=== PATIENT | male | born 1985 | race Caucasian/White ===

== ENCOUNTER → 2022-10-29 14:23 | Outpatient (BNVA) | payer SELFPAY | PROVIDERS: Visit Provider Physician Assistant Medical | DX: Z02.79 Encounter for issue of other medical certificate (principal) ==

== ENCOUNTER 2024-12-13 10:47 | Outpatient (AMB) | payer OTHER, SELFPAY ==
--- NOTE | 2024-12-13 10:56 | MHC.PC.OV ---
Vital Signs 12/13/24 11:02 12/13/24 11:10 12/13/24 11:36 Height 5 ft 8 in Weight 321 lb BMI 48.8 BP 199/121 H 190/116 H 190/120 H Blood Pressure Location Rt brachial Rt brachial Rt brachial Position Sitting Sitting Sitting Respiration 16 Pulse 105 H 90 Pulse Source Pulse Oximeter Auscultation Temp 98.2 F Temp Source Oral Pulse Oximetry (%) 97 Oxygen Delivery Method Room Air Intake Visit Reasons: Requesting PE/ Establish care Intake Note: patient here for new patient visit Credit Risk Manager Required: No Allergies No Known Allergies Allergy (Verified 12/13/24 11:24) Medication List - Last Reconciled 12/13/24 by Malena Hairston, [employer]KATLYN tirzepatide (weight loss) (Zepbound) 5 mg subcut QWEEK Tobacco use date assessed: 12/13/24 Dental Screening Dental Screen Date: 12/13/24 Did you have a dental visit in the last 12 months?: Yes Did you have a dental problem in the last 6 months where you did not have access to dental care?: No Was dental information given to patient?: Patient has dentist HPI HPI Comments History of Present Illness Details 39-year-old male with morbid obesity, hypertension, hx of provoked DVT RUE (high school), LVH s/p umb hernia repair, Family hx: Dad with MD Social: , works in construction Health Maintenance: PSA ordered today Tdap admin today Flu declined Specialists: None Here today to establish care the only previous medical records that I have for him are from July of 2024 when he was seen of the emergency room for chest pain. He was diagnosed with hypertension at that time an EKG showed sinus tachycardia otherwise was within normal limits discharged home w/o meds. Monitors BP at home. Always high. Today denies cardiac complaints; Does not have any swelling in legs. No sx of sleep apnea; has never had sleep study. Chronic nasal congestion. Using flonase. Using sudafed routinely like 3 x week. Reports tried allergy meds w/o help. RLS at times Rash on bilat knees, prsent for years. Non painful or itchy. has not seen Derm Exam Awake alert NAD PERRLA EOMI RRR LS clear but dim throughout No edema BLE See below for rash Neuro - no deficits Plan EKG today shows LVH; proceed w/ Echo. Tdap today Labs today Declined flu Refer to Derm for rash on knees, [facility] referral, find out if insurance is accepted in [place]; if so, send me message and will refer to ENT. Long wait in [place] for services. Want him off sudafed SAÚL. Cont flonase. RTO 2 weeks BP recheck,sooner PRN 911 edu provided. Total time spent caring for the patient today was 48 minutes. This includes time spent before the visit reviewing the chart, time spent during the visit, and time spent after the visit on documentation, reviewing laboratory results, diagnostic imaging, medications, performing a medically necessary evaluation, counseling on diagnoses, care coordination, ordering appropriate tests, ordering appropriate medications, review of tests performed by other providers, reporting test results with the patient, communication with other healthcare providers. [facility] Medical History (Updated 12/13/24 @ 12:12 by Malena Hairston, [facility]) Anxiety H/O blood clots High blood pressure Surgical History (Updated 12/13/24 @ 11:08 by Hedy Ann MA) History of hernia repair Family History (Updated 12/13/24 @ 11:08 by Hedy Ann MA) Father Alcohol abuse High blood pressure Cardiovascular disease Mother Anal cancer Social History Housing: House Patient Tobacco Use Status: Never used Tobacco e-Cigarette/Vaping Use: Never Used Second Hand Smoke Exposure: No service: No Current occupational status: employed Current occupation: labor work Current occupational exposures/hazards: No Cognitive needs: No Hearing needs: No Vision needs: No Questionnaire PHQ-9 Over the last 2 weeks, how often have you been bothered by any of the following problems? 1. Little interest or pleasure in doing things: not at all 2. Feeling down, depressed, or hopeless: not at all 3. Trouble falling or staying asleep, or sleeping too much: not at all 4. Feeling tired or having little energy: not at all 5. Poor appetite or overeating: not at all 6. Feeling bad about yourself - or that you are a failure or have let yourself or your family down: not at all 7. Trouble concentrating on things, such as reading the newspaper or watching television: not at all 8. Moving or speaking so slowly that other people could have noticed. Or the opposite - being so fidgety or restless that you have been moving around a lot more than usual: not at all 9. Thoughts that you would be better off or of hurting yourself in some way: not at all Total score: 0 Depression Screening Interpretation: Negative Depression Screening Done: Yes 38677 - PHQ-9 Billing: Yes Source: Developed by Drs. Lawrence Davila, Pao Power, Nilton Grimaldo and colleagues, with an educational elva from [employer]. Thrive Questionnaire Date Thrive assessed: 12/13/24 I am a: Patient What is your living situation today?: I have a steady place to live Within the past 12 months, did the food you bought not last and you didn't have the money to get more?: Never true Within the past 12 months, did you worry whether your food would run out before you got money to buy more?: Never true Do you have trouble paying for medicines?: No Do you have trouble getting transportation to medical appointments?: No Do you have trouble paying your heating and electricity bill?: No Do you have trouble taking care of your child, family member or friend?: No Do you have trouble with day-to-day activities such as bathing, preparing meals, shopping, managing finances, etc.?: No Are you currently unemployed and looking for a job?: No Are you interested in more education?: No Please select the resources that you would like help with: None Currently or been in a relationship where the following occur: No concerns reported THRIVE Score: 0 AUDIT C Alcohol Use Questionnaire (AUDIT-C) 1. How often do you have a drink containing alcohol?: Monthly or less 2. How many drinks containing alcohol do you have on a typical day when you are drinking?: 5 or 6 3. How often do you have six or more drinks on one occasion?: Never Total Score: 3 Score Reviewed/Action Taken: Yes FREDI-7 AMB Questionnaire FREDI-7 Date FREDI - 7 assessed: 12/13/24 Feeling nervous, anxious, or on edge: 1 = Several days Not being able to stop or control worryin = Not at all Worrying too much about different things: 1 = Several days Trouble relaxin = Several days Being so restless that it is hard to sit still: 1 = Several days Becoming easily annoyed or irritable: 1 = Several days Feeling afraid as if something awful might happen: 0 = Not at all Total FREDI-7 score (0-4 normal; 5-9 mild; 10-14 moderate; 15-21 severe): 5 Source: Developed by Drs. Lawrence Davila, Pao Power, Nilton Grimaldo and colleagues, with an educational elva from [employer]. FREDI-7 Assessment Billing FREDI-7 Assessment Tool: FREDI-7 Assessment 26337 Physical exam (Primary Care) Vital Signs: Last Vital Signs Temp 98.2 F 12/13/24 11:02 Pulse 90 12/13/24 11:36 Resp 16 12/13/24 11:02 BP 190/120 H 12/13/24 11:36 Pulse Ox 97 12/13/24 11:02 Oxygen Delivery Method Room Air 12/13/24 11:02 BMI result Body Mass Index 48.8 Tobacco/Smoking Status: Tobacco use Status Tobacco use date assessed 12/13/24 12/13/24 11:02 Patient Tobacco Use Status Never used Tobacco 12/13/24 11:02 e-Cigarette/Vaping Use Never Used 12/13/24 11:02 PHQ-9: PHQ-9 Score PHQ-9: Total score 0 12/13/24 11:59 Depression Screening Interpretation: Negative Thrive Assessment: Date of Thrive Assessment Date Thrive assessed 12/13/24 12/13/24 11:02 Currently or been in a relationship where the following occur: No concerns reported Office Procedures EKG 51432-[id number], Complete Immunizations Boostrix Tdap 2.5 Lf unit-8 mcg-5 Lf/0.5 mL intramuscular syringe Performing Provider: SIRISHA Gutierrez Performing Location: [facility] Administered by: Darryl Ko RN on 12/13/24 12:00 Dose Route Admin Location Dispensed Lot Number Expiration Date NDC Ribbon Tier 0.5 mL IM Right Deltoid 0.5 mL [id number] 09/22/26 [id number] [place] VIS Given Date VIS Provided VIS Publication Date 12/13/24 Single Vaccine 21 Eligibility Eligibility Date Funding Source Not [facility] Eligible 12/13/24 Private Coding Level of Care Code New Pt Level 4 (14352) Complex EM visit Add On G2211 Diagnoses Encounter to establish care Z76.89 Primary hypertension I10 Hypertension type: primary hypertension Morbid obesity with BMI of 45.0-49.9, adult E66.01; Z68.42 Atypical rash R21 RLS (restless legs syndrome) G25.81 Family history of MD (myocardial infarction) Z82.49 Influenza vaccination declined Z28.21 Need for Tdap vaccination Z23 Chronic nasal congestion R09.81 LVH (left ventricular hypertrophy) I51.7 CPT Codes EKG - CPT: 84380-[id number], Complete ([id number]) Additional Codes FREDI-7 Assessment Billing - FREDI-7 Assessment Tool: FREDI-7 Assessment 39062 ([id number]) PHQ-9 - 75662 - PHQ-9 Billing: Yes ([id number]) Assessment & Plan Assessment & Plan (1) Encounter to establish care: Code(s): Z76.89 - Persons encountering health services in other specified circumstances Category: Medical (2) High blood pressure: Code(s): I10 - Essential (primary) hypertension Category: Medical Qualifiers: Hypertension type: primary hypertension Qualified Code(s): I10 - Essential (primary) hypertension (3) Morbid obesity with BMI of 45.0-49.9, adult: Code(s): E66.01 - Morbid (severe) obesity due to excess calories; Z68.42 - Body mass index [BMI] 45.0-49.9, adult Category: Medical (4) Atypical rash: Comment: bilat knee refer to derm Code(s): R21 - Rash and other nonspecific skin eruption Category: Medical (5) RLS (restless legs syndrome): Code(s): G25.81 - Restless legs syndrome Category: Medical (6) Family history of MD (myocardial infarction): Comment: Dad age 65 Code(s): Z82.49 - Family history of ischemic heart disease and other diseases of the circulatory system Category: Medical (7) Influenza vaccination declined: Code(s): Z28.21 - Immunization not carried out because of patient refusal Category: Medical (8) Need for Tdap vaccination: Code(s): Z23 - Encounter for immunization Category: Medical (9) Chronic nasal congestion: Code(s): R09.81 - Nasal congestion Category: Medical (10) LVH (left ventricular hypertrophy): Code(s): I51.7 - Cardiomegaly Category: Medical Plan . Orders: Orders Complete Blood Count no Diff Today E66.01 - Morbid (severe) obesity due to excess calories, G25.81 - Restless legs syndrome, I10 - Essential (primary) hypertension, Z68.42 - Body mass index [BMI] 45.0-49.9, adult, Z82.49 - Family history of ischemic heart disease and other diseases of the circulatory system Comprehensive Met. Panel Today E66.01 - Morbid (severe) obesity due to excess calories, G25.81 - Restless legs syndrome, I10 - Essential (primary) hypertension, Z68.42 - Body mass index [BMI] 45.0-49.9, adult, Z82.49 - Family history of ischemic heart disease and other diseases of the circulatory system Hemoglobin A1c Today E66.01 - Morbid (severe) obesity due to excess calories, G25.81 - Restless legs syndrome, I10 - Essential (primary) hypertension, Z68.42 - Body mass index [BMI] 45.0-49.9, adult, Z82.49 - Family history of ischemic heart disease and other diseases of the circulatory system Lipid Panel Today E66.01 - Morbid (severe) obesity due to excess calories, G25.81 - Restless legs syndrome, I10 - Essential (primary) hypertension, Z68.42 - Body mass index [BMI] 45.0-49.9, adult, Z82.49 - Family history of ischemic heart disease and other diseases of the circulatory system PSA, Ultra Sensitive Today E66.01 - Morbid (severe) obesity due to excess calories, G25.81 - Restless legs syndrome, I10 - Essential (primary) hypertension, Z68.42 - Body mass index [BMI] 45.0-49.9, adult, Z82.49 - Family history of ischemic heart disease and other diseases of the circulatory system RT home sleep study Today R06.83 - Snoring CA echo transthoracic complete Today I10 - Essential (primary) hypertension, I51.7 - Cardiomegaly IRON PROFILE Today E66.01 - Morbid (severe) obesity due to excess calories, G25.81 - Restless legs syndrome, I10 - Essential (primary) hypertension, Z68.42 - Body mass index [BMI] 45.0-49.9, adult, Z82.49 - Family history of ischemic heart disease and other diseases of the circulatory system Microalbumin, Random (w Creat) Today E66.01 - Morbid (severe) obesity due to excess calories, G25.81 - Restless legs syndrome, I10 - Essential (primary) hypertension, Z68.42 - Body mass index [BMI] 45.0-49.9, adult, Z82.49 - Family history of ischemic heart disease and other diseases of the circulatory system TSH reflex Free T4 Today E66.01 - Morbid (severe) obesity due to excess calories, G25.81 - Restless legs syndrome, I10 - Essential (primary) hypertension, Z68.42 - Body mass index [BMI] 45.0-49.9, adult, Z82.49 - Family history of ischemic heart disease and other diseases of the circulatory system Vitamin B12 and Folate Today E66.01 - Morbid (severe) obesity due to excess calories, G25.81 - Restless legs syndrome, I10 - Essential (primary) hypertension, Z68.42 - Body mass index [BMI] 45.0-49.9, adult, Z82.49 - Family history of ischemic heart disease and other diseases of the circulatory system Vitamin D 25-OH Total Today E66.01 - Morbid (severe) obesity due to excess calories, G25.81 - Restless legs syndrome, I10 - Essential (primary) hypertension, Z68.42 - Body mass index [BMI] 45.0-49.9, adult, Z82.49 - Family history of ischemic heart disease and other diseases of the circulatory system Ferritin Today E66.01 - Morbid (severe) obesity due to excess calories, G25.81 - Restless legs syndrome, I10 - Essential (primary) hypertension, Z68.42 - Body mass index [BMI] 45.0-49.9, adult, Z82.49 - Family history of ischemic heart disease and other diseases of the circulatory system AMB EKG-In Office Today I10 - Essential (primary) hypertension, Z13.6 - Encounter for screening for cardiovascular disorders TDaP Immunization Today Z23 - Encounter for immunization Referrals Dermatology Referral R21 - Rash and other nonspecific skin eruption Patient Instructions: Walk-In Care (Urgent Care): We Make it Easy Walk-in for urgent medical issues such as: ? Seasonal Allergies ? Insect Bites ? Cough ? Diarrhea ? Acute Asthma Attacks ? Back, Knee or Joint Pain ? Ear Infection ? Fever without a Rash ? Headaches ? Nausea ? [place] [facility], Rash or Skin Irritation ? Sore Throat ? Sports Physicals ? Vomiting Most insurances are accepted. Patients do not need to be part of the [facility] to seek care at the walk-in clinic. Locations [address] [facility] [place] [address] ? [phone] [facility] Walk-In Care in [place] provides services to ages 18 and over. Open Wednesday-Wednesday: 8 a.m. to 5 p.m. and Wednesday: 9 a.m. to 3 p.m.* *Hours may vary due to staffing availability. To confirm Walk-In Care hours in [place], please call [phone]. [address] [place] [address] ? [phone] [facility] Walk-In Care in [place] provides services to ages 12 and over. Open Wednesday-Wednesday: 8 a.m. to 5 p.m. Hours may vary due to staffing availability. To confirm Walk-In Care hours in [place], please call [phone]. LABORATORY SERVICES: [facility] ? Primary Location [address] [place] [address] Wednesday through Wednesday 6:00 AM ? 5:00 PM Wednesday 7:00 AM ? 11:00 AM* [phone] The [facility] is centrally located near the front entrance of the [facility] for easy outpatient access. Convenient parking is provided for outpatients. *Hours may vary due to staffing availability. To confirm Laboratory hours for any location, please call [phone]. Offsite Location For your convenience, we offer offsite laboratory draw stations at the following locations: [address] [place] [address] ? [facility] [address], [address] Wednesday through Wednesday 7:30 AM ? 1:00 PM* [phone] *Hours may vary due to staffing availability. To confirm Laboratory hours for any location, please call [phone]. [place] ? [address] Wednesday through Wednesday 6:00 AM ? 3:30 PM* Wednesday 6:30 AM ? 3 PM* [phone] *Hours may vary due to staffing availability. To confirm Laboratory hours for any location, please call [phone]. [address] [facility] Wednesday through Wednesday 7:30 AM ? 4:00 PM* [phone] *Hours may vary due to staffing availability. To confirm Laboratory hours for any location, please call [phone]. [address] [facility] Wednesday through 9:00 AM ? 4:00 PM* *Hours may vary due to staffing availability. To confirm Laboratory hours for any location, please call [phone]. Appointments are not necessary. Walk-ins are welcome. Like all the departments throughout the [facility], our Lab undergoes frequent reviews to ensure the quality and accuracy of test results, and our staff takes special pride in its status as a nationally accredited facility. Patient Portal: ONE PATIENT. ONE RECORD. BETTER CARE. [facility] has a fully integrated, cutting-edge mobile electronic health information system that has revolutionized the way we care for our patients and manage our organization. This system improves communication and coordination enabling us to provide safe, higher-quality care, and an overall positive experience for staff and patients. Our first priority, as always, is to deliver the highest quality care possible. The system is running in the background supporting that priority. This portal is for all [facility] and [facility] services and practices. If you are experiencing any technical difficulties with enrolling or logging into the Patient Portal please complete the [facility] Patient Portal Technical Support Form. [facility] and [facility] now offers a new secure on-line interactive tool for patients to review their health information ? ?Patient Portal. This interactive web portal will enable patients and their families to take an active role in their care by providing easy, secure access to their health information via the internet. The Patient Portal provides patients with instant access to their health information, including laboratory results, medications, allergies, demographic information, visit history, and more. In addition to managing their own care, parents and health care proxies with authorized consent will appreciate the ability to access the records of those individuals for whom they provide care. Please note: if you wish to gain access (Proxy) to another patient?s portal, you will be required to come to the Medical Records Department in person at [facility]. Both the patient giving proxy access and the proxy will need to provide photo identification and complete the appropriate authorization. The Patient Portal also allows track their appointments online. The [facility] Patient Portal also saves patients time by allowing them to submit updates to their demographic and contact information prior to their visits. Portal email notifications will also alert patients to any new activity on their portal, such as test results and new appointments. In order to initially enroll in the [facility] Patient Portal, you will need to enter some required information including the following: your [facility] Medical Record number your personal home email address name date of Please note: In order to enroll in the [facility] Patient Portal, we need to have your email address on file in your electronic medical record. ?The email address needs to be specific for one person (yourself) in order for your Portal enrollment to be successful. ?You can update your email address in person with our Registration staff when you are registering for a hospital visit. ?Otherwise, you will need to come to the Health Information Management (Medical Records) Department at [facility]. ?We are open from Wednesday ? Wednesday from 7:30 a.m. ? 4:30 p.m. ?You will be required to present a photo id. Once you have successfully enrolled in the Patient Portal, you will receive a one-time user id and password for the Portal, sent to your email address. ?This will allow you to log into the Patient Portal within 99 hrs and reset your own logon id and password, and define personal security questions. ?Once your permanent login and password have been set, you can log into the [facility] Patient Portal at any time via the blue button above or from the Portal Logon button on any page of the [facility] website. [facility] and [facility] encourage all of our patients to enroll in Patient Portal as it presents a valuable opportunity for patients and their families to actively participate in their care and stay healthy Welcome to [facility]. ?We look forward to working with you.
[2024-12-13 11:02] VITALS: BP 199/121; PULSE 105; RESP 16; TEMP 36.8; O2SAT 97; BMI 48.8
[2024-12-13 11:10] VITALS: BP 190/116
[2024-12-13 11:36] VITALS: BP 190/120; PULSE 90
== END 2024-12-13 12:13 | disposition home or self-care (01) ==
LOC: HO.HMCFM 10:47
PROVIDERS: PCP Nurse Practitioner Family; Visit Provider Nurse Practitioner Family
DX: Z76.89 Persons encountering health services in other specified circumstances (principal); I10 Essential (primary) hypertension; E66.01 Morbid (severe) obesity due to excess calories; Z68.42 Body mass index [BMI] 45.0-49.9, adult; R21 Rash and other nonspecific skin eruption; G25.81 Restless legs syndrome; Z82.49 Family history of ischemic heart disease and other diseases of the circulatory system; Z28.21 Immunization not carried out because of patient refusal; Z23 Encounter for immunization; R09.81 Nasal congestion; I51.7 Cardiomegaly

== ENCOUNTER 2024-12-13 12:04 | Outpatient (REF) | payer OTHER, SELFPAY ==
[2024-12-13 14:22] LABS: Hemoglobin 16.6 g/dl (14.0-18.0); Mean Corpuscular HGB Conc 35.3 g/dl (31.0-36.0); Mean Corpuscular Hemoglobin 30.8 pg (27.0-33.0); Mean Corpuscular Volume 87.2 fL (80.0-98.0); Mean Platelet Volume 10.9 fL (9.4-12.4); Platelet Count 237 X10*3/uL (160-400); Red Blood Count 5.39 X10*6/uL (4.60-5.80); Red Cell Distribution Width 12.6 % (11.0-16.0); White Blood Count 6.2 X10*3/uL (4.8-10.8)
[2024-12-13 14:38] LABS: Estimated Average Glucose 88 mg/dL; Hemoglobin A1C 119.4609 umol/L; Hemoglobin A1c % 4.7 % (<6.0); Total Hemoglobin (HGBA1C) 4366.3197 umol/L
[2024-12-13 14:49] LABS: Alanine Aminotransferase 47 U/L (0-40); Albumin Level 4.5 g/dL (3.5-5.0); Alkaline Phosphatase 89 U/L (39-117); Anion Gap 9 (12-20); Aspartate Amino Transferase 44 U/L (5-37); Bilirubin Total 0.8 mg/dL (0.0-1.0); Blood Urea Nitrogen 19 mg/dL (9-16); Calcium 9.5 mg/dL (8.4-10.2); Carbon Dioxide 27 mmol/L (22-29); Chloride 106 mmol/L (96-108); Cholesterol 153 mg/dL (<200); Estimated Glomerular Filt Rate > 60; Glucose Random 80 mg/dL (60-115); HDL Cholesterol 35 mg/dL (>40); Iron 112 mcg/dL (45-160); LDL Cholesterol Calculated 105 mg/dL (<100); Percent Iron Saturation 38 % (15-50); Potassium 3.6 mmol/L (3.3-5.1); Sodium 138 mmol/L (135-145); Total Iron Binding Capacity 298 mcg/dL (228-428); Total Protein 7.6 g/dL (6.5-8.0); Triglycerides 69 mg/dL (<150); Unsaturated Iron Binding 186 ug/dL
[2024-12-13 14:54] LABS: Microalbum/Creatinine Ratio Ur 40.4 ug/mg cr (<30)
[2024-12-13 15:04] LABS: Folate 7.5 ng/mL (> or = 4.0); Vitamin B12 798 pg/mL (200-900)
[2024-12-13 15:06] LABS: Ferritin 178 ng/mL (20-250); Vitamin D 25-OH Total 61.7 ng/mL (>30)
[2024-12-17 16:09] LABS: PSA, Ultra Sensitive 1.48 ng/mL
== END 2024-12-13 12:05 | disposition home or self-care (01) ==
LOC: HO.WFDLDS 12:04
PROVIDERS: Visit Provider Nurse Practitioner Family
DX: Z76.89 Persons encountering health services in other specified circumstances (principal); Z23 Encounter for immunization; I10 Essential (primary) hypertension; E66.01 Morbid (severe) obesity due to excess calories; Z68.42 Body mass index [BMI] 45.0-49.9, adult; R21 Rash and other nonspecific skin eruption; G25.81 Restless legs syndrome; Z82.49 Family history of ischemic heart disease and other diseases of the circulatory system; Z28.21 Immunization not carried out because of patient refusal; Z12.5 Encounter for screening for malignant neoplasm of prostate; Z13.1 Encounter for screening for diabetes mellitus
CPT/HCPCS: 36415; 80053; 80061; 82043; 82306; 82570; 82607; 82728; 82746; 83036; 83540; 84153; 84443; 85027; 90471; 90715; 93005; 96127

== ENCOUNTER 2024-12-27 08:16 | Outpatient (AMB) | payer OTHER, SELFPAY ==
--- NOTE | 2024-12-27 08:22 | MHC.PC.OV ---
Vital Signs 12/27/24 08:25 Height 5 ft 8 in Weight 305 lb BMI 46.4 BP 152/90 H Blood Pressure Location Rt brachial Position Sitting Respiration 14 Pulse 90 Pulse Source Pulse Oximeter Temp 97.6 F Temp Source Oral Pulse Oximetry (%) 97 Oxygen Delivery Method Room Air Intake Visit Reasons: 2 weeks 30 min fu labs and HTN Intake Note: Follow up on labs and htn Field Support Specialist Required: No Allergies No Known Allergies Allergy (Verified 12/27/24 08:48) Medication List - Last Reconciled 12/27/24 by Malena Hairston, RANGE ECOLOGIST- lisinopril 20 mg PO DAILY tirzepatide (weight loss) (Zepbound) 5 mg subcut QWEEK Tobacco use date assessed: 12/27/24 Dental Screening Dental Screen Date: 12/27/24 Did you have a dental visit in the last 12 months?: Yes Did you have a dental problem in the last 6 months where you did not have access to dental care?: No Was dental information given to patient?: Patient has dentist HPI HPI Comments History of Present Illness Details 39-year-old male with morbid obesity, hypertension, hx of provoked DVT RUE (high school), LVH, elevated LFT, HLD s/p umb hernia repair, Family hx: Dad with [place] Social: , works in construction Health Maintenance: PSA ordered today Tdap admin today Flu declined Specialists: None Here today for close interim fu HTN after starting lisinopril 20mg QD BP log from home reviewed: SBP 150-170, DBP 93-111 Tolerating Lisinopril Feeling much better Limiting use of Sudafed No chest pain, sob or swelling. Derm - referral in place. Using topical steroids + effect. Appt pending. Insurance accepted in [place] for E[place]. Reviewed labs with him, low hdl LDL > 100, mild elevated LFTS mild microalbumin normal bun, cr Exam Awake alert NAD PERRLA EOMI RRR LS clear but dim throughout No edema BLE See below for rash Neuro - no deficits Plan Increase lisinipril to 40mg QD Monitor BP at home, bring log with you to next visit Monitor Lipids ,LFTS, microalbu with labs in 3 months Echo pending and sleep study ENT referral to CT placed today RTO 4-6 weeks bp recheck, sleep study and echo results Sooner PRN Total time spent caring for the patient today was 30 minutes. This includes time spent before the visit reviewing the chart, time spent during the visit, and time spent after the visit on documentation, reviewing laboratory results, diagnostic imaging, medications, performing a medically necessary evaluation, counseling on diagnoses, care coordination, ordering appropriate tests, ordering appropriate medications, review of tests performed by other providers, reporting test results with the patient, communication with other healthcare providers. [facility] Medical History (Updated 12/13/24 @ 17:12 by Malena Hairston [facility]) Anxiety H/O blood clots High blood pressure Surgical History (Updated 12/13/24 @ 11:08 by Hedy Ann MA) History of hernia repair Family History (Updated 12/13/24 @ 11:08 by Hedy Ann MA) Father Alcohol abuse High blood pressure Cardiovascular disease Mother Anal cancer Social History Housing: House Patient Tobacco Use Status: Never used Tobacco e-Cigarette/Vaping Use: Never Used Second Hand Smoke Exposure: No service: No Current occupational status: employed Current occupation: labor work Current occupational exposures/hazards: No Cognitive needs: No Hearing needs: No Vision needs: No Questionnaire Thrive Questionnaire Date Thrive assessed: 12/13/24 I am a: Patient What is your living situation today?: I have a steady place to live Within the past 12 months, did the food you bought not last and you didn't have the money to get more?: Never true Within the past 12 months, did you worry whether your food would run out before you got money to buy more?: Never true Do you have trouble paying for medicines?: No Do you have trouble getting transportation to medical appointments?: No Do you have trouble paying your heating and electricity bill?: No Do you have trouble taking care of your child, family member or friend?: No Do you have trouble with day-to-day activities such as bathing, preparing meals, shopping, managing finances, etc.?: No Are you currently unemployed and looking for a job?: No Are you interested in more education?: No Please select the resources that you would like help with: None Currently or been in a relationship where the following occur: No concerns reported THRIVE Score: 0 FREDI-7 AMB Questionnaire FREDI-7 Date FREDI - 7 assessed: 12/13/24 Source: Developed by Drs. Lawrence L. LolaPao aranda, Nilton Grimaldo and colleagues, with an educational elva from [employer]. Physical exam (Primary Care) Vital Signs: Last Vital Signs Temp 97.6 F 12/27/24 08:25 Pulse 90 12/27/24 08:25 Resp 14 12/27/24 08:25 BP 152/90 H 12/27/24 08:25 Pulse Ox 97 12/27/24 08:25 Oxygen Delivery Method Room Air 12/27/24 08:25 BMI result Body Mass Index 46.4 Tobacco/Smoking Status: Tobacco use Status Tobacco use date assessed 12/27/24 12/27/24 08:27 Patient Tobacco Use Status Never used Tobacco 12/27/24 08:23 e-Cigarette/Vaping Use Never Used 12/27/24 08:23 Thrive Assessment: Date of Thrive Assessment Date Thrive assessed 12/13/24 12/27/24 08:23 Currently or been in a relationship where the following occur: No concerns reported Coding Level of Care Code Est Pt Level 4 (14139) Complex EM visit Add On G2211 Diagnoses Primary hypertension I10 Hypertension type: primary hypertension Low HDL (under 40) E78.6 Microalbuminuria R80.9 Atypical rash R21 Chronic nasal congestion R09.81 LVH (left ventricular hypertrophy) I51.7 Assessment & Plan Assessment & Plan (1) High blood pressure: Code(s): I10 - Essential (primary) hypertension Category: Medical Qualifiers: Hypertension type: primary hypertension Qualified Code(s): I10 - Essential (primary) hypertension (2) Low HDL (under 40): Code(s): E78.6 - Lipoprotein deficiency Category: Medical (3) Microalbuminuria: Code(s): R80.9 - Proteinuria, unspecified Category: Medical (4) Atypical rash: Comment: bilat knee refer to derm Code(s): R21 - Rash and other nonspecific skin eruption Category: Medical (5) Chronic nasal congestion: Code(s): R09.81 - Nasal congestion Category: Medical (6) LVH (left ventricular hypertrophy): Code(s): I51.7 - Cardiomegaly Category: Medical Plan . Orders: Orders Lipid Panel Today E78.6 - Lipoprotein deficiency, I10 - Essential (primary) hypertension, R80.9 - Proteinuria, unspecified Microalbumin, Random (w Creat) Today E78.6 - Lipoprotein deficiency, I10 - Essential (primary) hypertension, R80.9 - Proteinuria, unspecified Comprehensive Met. Panel Today E78.6 - Lipoprotein deficiency, I10 - Essential (primary) hypertension, R80.9 - Proteinuria, unspecified Referrals Ear/Nose/Throat Referral R09.81 - Nasal congestion Medications: Changed From lisinopril 20 mg PO DAILY 90 tabs 0RF To lisinopril 40 mg (2 x 20 mg) PO DAILY 90 tabs 0RF
[2024-12-27 08:25] VITALS: BP 152/90; PULSE 90; RESP 14; TEMP 36.4; O2SAT 97; BMI 46.4
== END 2024-12-27 09:01 | disposition home or self-care (01) ==
LOC: HO.HMCFM 08:17
PROVIDERS: PCP Nurse Practitioner Family; Visit Provider Nurse Practitioner Family
DX: I10 Essential (primary) hypertension (principal); E78.6 Lipoprotein deficiency; R80.9 Proteinuria, unspecified; R21 Rash and other nonspecific skin eruption; R09.81 Nasal congestion; I51.7 Cardiomegaly

== ENCOUNTER → 2024-12-27 08:16 | Outpatient (BNVA) | payer OTHER, SELFPAY | PROVIDERS: PCP Nurse Practitioner Family; Visit Provider Nurse Practitioner Family ==

== ENCOUNTER → 2025-01-23 14:29 | Outpatient (REF) | payer OTHER, SELFPAY ==
--- NOTE | 2025-01-23 14:32 | CA_ITS ---
Transthoracic Echocardiogram Patient (Last, First, Middle): Brennen Tate M Gender: Male Date of : 1985 Age: 40 Procedure Date: 01/23/2025 Procedure Type: Transthoracic Echocardiogram Location: OP Height: 172. cm Weight: 127.01 kg BSA: 2.35 m2 Heart Rate: 91 bpm BP: 140 / 90 mmHg Jewel Hole Driller: BROOK Referring MD: Malena Hairston [facility]- Event Organizer: Trey Negrete MD Symptoms: I51.7 - Cardiomegaly Study Quality: Technically Difficult ECG Rhythm: Sinus Conclusions: - 1. Technically limited study despite use of contrast agents 2. Normal LV ejection fraction 55-60% with mild LVH with impaired relaxation filling pattern 3. Cardiac valvular Dopplers without any significant abnormalities 4. Mildly dilated ascending aorta Findings Procedure Information Contrast agent, definity, is being given per protocol without apparent complications. Left Ventricle Normal left ventricular size and systolic function. There is mildly increased left ventricular wall thickness. The visually estimated ejection fraction is between 55-60%. Spectral Doppler is indicative of an impaired relaxation filling pattern. E/E prime ratio is between 8 and 15 consistent with indeterminate filling pressures. Right Ventricle Normal right ventricular cavity size and systolic function. Atria The left atrium is likely dilated. There is no evidence of interatrial shunt. The right atrium is normal in size. Aortic Valve The aortic valve was not well visualized. There is no aortic valve stenosis. There is no aortic valve regurgitation. Mitral Valve The mitral valve was not well visualized. There is no mitral valve regurgitation. There is no mitral valve stenosis. Pulmonic Valve The pulmonic valve was not well visualized. Tricuspid Valve The tricuspid valve was not well visualized. Tricuspid regurgitation envelope is inadequate for calculation of right ventricular systolic pressure. Great Vessels The aorta was not well visualized. The pulmonary artery was not well visualized. There is mild dilatation of the ascending aorta measuring 4.00 cm. Venous The inferior vena cava was not well visualized. Pericardium/Pleural The pericardium was not well visualized. Prior Study Comparison No prior study available for comparison. Measurements 2D Linear Measurements IVSd: 1.31 0.6-0.9/0.6-1.0 cm LVIDd: 4.09 3.9-5.3/4.2-5.9 cm LVIDd Index: 1.74 2.4-3.2/2.2-3.1 cm/m2 LVIDs: 2.27 2.0-3.6 cm LVPWd: 1.46 0.7-1.1 cm Ao Root: 3.90 2.1-3.5 cm LA Diam: 3.90 2.7-3.8/3.0-4.0 cm LAIDs Index: 1.66 1.5-2.3 cm/m2 LV Mass: 264.59 67-162/88-224 g LV Mass Index: 112.59 43-95/49-115 g/m2 LVOT Diam: 2.60 3.0+(-)1.3 cm 2D Systolic Function EF 4C: 53.90 >55% EF 2C: 59.90 >55% EF BiP: 55.40 >55% Mitral Valve MV Pk E: 0.57 MV PK A: 0.78 MV Decel Time: 251.00 E/A: 0.70 E'Lateral: 7.07 E'Medial: 6.20 E/E' Med: 9.20 E/E' Lat: 8.10 PHT: 73.00 MVA PHT: 3.01 Decel Saunders: 2.27 Aortic Valve AoV Pk Brendon: 1.24 AoV Mn Brendon: 0.91 AoV VTI: 0.19 AoV Pk Grad: 6.00 Aov Mn Grad: 4.00 NICHOLAS Cont.VTI: 5.39 LVOT LVOT Pk Brendon: 1.06 LVOT Mn Brendon: 0.74 LVOT VTI: 0.19 LVOT Pk Grad: 4.00 LVOT Mn Grad: 3.00 LVOT Diam: 2.60 LVOT Area: 5.31 Diastolic Function MV Pk E: 0.57 MV Pk A: 0.78 E/A: 0.70 E'Medial: 6.20 E/E' Med: 9.20 E' Laterial: 7.07 E/E' Lat: 8.10 Tricuspid Valve RA Press: 3.00 Great Vessels Aorta Ao Root-2D: 3.90 2.0-3.7 cm Ao Asc: 4.00 2.1-3.4 cm Ao Arch: 3.70 Pulmonary Valve PV Pk Brendon: 0.81 Peak PV Grad: 3.00 Updated in Other Vendor System with Status of Final Trey Negrete MD electronically signed on 01/23/2025 5:14:46 PM with status of Final
== END ==
LOC: HO.CARD 14:29
PROVIDERS: PCP Nurse Practitioner Family; Visit Provider Nurse Practitioner Family
DX: Q28.8 Other specified congenital malformations of circulatory system (principal); I51.7 Cardiomegaly; I10 Essential (primary) hypertension
CPT/HCPCS: 93306; Q9957

== ENCOUNTER → 2025-01-23 14:32 | Outpatient (BNV) | payer OTHER, SELFPAY | PROVIDERS: PCP Nurse Practitioner Family; Visit Provider Internal Medicine Cardiovascular Disease | DX: I51.7 Cardiomegaly (principal) | CPT/HCPCS: 93306 ==

== ENCOUNTER 2025-02-03 11:15 | Outpatient (REF) | payer OTHER, SELFPAY ==
--- NOTE | ~2025-02-03 | XR_ITS ---
CLINICAL HISTORY: M25.562 - Pain in left knee --- Additional Notes or Special Instructions: severe kn ee pain yesterday with swelling, improved today. Injured 1 year ago, no treatment Radiographs of the left knee, 4 views Comparison: None Findings: There is no fracture or dislocation. No joint space narrowing. Trace patellofemoral compartment osteophytosis. Bone mineralization is normal. No joint effusion. Soft tissue swelling. Impression: No fracture or joint effusion. This document has been electronically signed by: Laury Peck MD on 02/03/2025 12:43:15
== END 2025-02-03 11:16 | disposition home or self-care (01) ==
LOC: HO.HMGCX 11:15
PROVIDERS: PCP Nurse Practitioner Family; Visit Provider Physician Assistant Medical
DX: M25.562 Pain in left knee (principal)
CPT/HCPCS: 73564

== ENCOUNTER 2025-02-03 11:15 | Outpatient (AMB) | payer OTHER, SELFPAY ==
--- NOTE | 2025-02-03 11:16 | AM.OFFWIN_ITS ---
Intake Vital Signs 02/03/25 11:17 Height 5 ft 8 in BMI Reason not done Patient refused/unable BP 140/80 H Blood Pressure Location Lt brachial Position Sitting Pulse 78 Pulse Source Pulse Oximeter Temp 98.1 F Temp Source Oral Pulse Oximetry (%) 96 Oxygen Delivery Method Room Air Intake Visit Reasons: EP-Lt knee pain Patient Tobacco Use Status: Never used Tobacco Allergies No Known Allergies Allergy (Verified 02/08/25 10:32) Do you need a note to return to daycare/school/sports/work: No HPI EP-Lt knee pain HPI Details Patient is a 40-year-old male with reoccurrence of acute left knee pain while working recently. He reports that it develops throughout the day and is worse at night. He reports that yesterday it was swollen also, but he elevated and iced it, which relieved swelling. He does report that he was significantly overweight, and has lost weight in the last year. He reports no weakness, numbness or tingling. [facility] Medical History H/O blood clots Anxiety High blood pressure Surgical History History of hernia repair Family History Father Alcohol abuse High blood pressure Cardiovascular disease Mother Anal cancer Social History Housing: House Patient Tobacco Use Status: Never used Tobacco e-Cigarette/Vaping Use: Never Used Second Hand Smoke Exposure: No service: No Current occupational status: employed Current occupation: labor work Current occupational exposures/hazards: No Cognitive needs: No Hearing needs: No Vision needs: No Review of Systems Const All systems reviewed & are unremarkable except as noted in HPI and below Physical Exam Vital Signs: Last Vital Signs Temp 98.1 F 02/03/25 11:17 Pulse 78 02/03/25 11:17 BP 140/80 H 02/03/25 11:17 Pulse Ox 96 02/03/25 11:17 Oxygen Delivery Method Room Air 02/03/25 11:17 Extrem Other: FROM and good strength with no swelling, redness or warmth to the L knee, and he is only mildly tender with palpation to the medial and lateral joint lines. No cellulitic features to the skin. He walks with a steady and nonantalgic gait. There is no laxity with varus or valgus stress. NVI distally Assessment & Plan Assessment & Plan (1) Left knee pain: Code(s): M25.562 - Pain in left knee Plan Patient is a 40-year-old male with reoccurrence of acute left knee pain while working recently. He reports that it develops throughout the day and is worse at night. He reports that yesterday it was swollen also, but he elevated and iced it, which relieved swelling. Patient has some small bone spurs in the left knee on plain film x-ray, in the patellofemoral area. He does report that he was significantly overweight, and has lost weight in the last year, but this might be the underlying cause of early arthritis. It is also possible that he has psoriatic arthritis, as he has what looks like psoriasis on both of the knees (He is pending Dermatology evaluation for diagnosis), and his symptoms could be from a an acute flare-up. However currently there is no swelling, redness or warmth to the joint, and he is only mildly tender with palpation to the medial and lateral joint lines. He walks with a steady and nonantalgic gait, and reports no weakness, numbness or tingling. There is no laxity with varus or valgus stress, and I do not think he is highly suspicious for internal derangement. Therefore I advised that he elevate at the end of the day, and if symptoms do worsen again, he should rest ice compress and elevate until swelling resolves. He also has purchased a hinged splint on his own, and can wear that as a protective mechanism while he is working. I wrote him for naproxen for anti-inflammatory action. He has a follow up with his primary care in the next 2 weeks, and he can discuss this more at that point. He might be a candidate for physical therapy. Orders: Orders XR knee LT 4V 02/03/25 M25.562 - Pain in left knee Medications: New naproxen 500 mg PO BID PRN 28 tabs 0RF pain 14 days Coding Level of Care Code Est Pt Level 4 (53472) Diagnoses Left knee pain M25.562
[2025-02-03 11:17] VITALS: BP 140/80; PULSE 78; TEMP 36.7; O2SAT 96
== END 2025-02-03 12:35 | disposition home or self-care (01) ==
LOC: HO.HMCWIC 11:15
PROVIDERS: PCP Nurse Practitioner Family; Visit Provider Physician Assistant Medical
DX: M25.562 Pain in left knee (principal)

== ENCOUNTER → 2025-02-03 11:45 | Outpatient (BNV) | payer OTHER, SELFPAY | PROVIDERS: PCP Nurse Practitioner Family; Visit Provider Radiology Diagnostic Radiology | DX: M22.2X2 Patellofemoral disorders, left knee (principal) | CPT/HCPCS: 73564 ==

== ENCOUNTER 2025-02-08 10:20 | Outpatient (AMB) | payer OTHER, SELFPAY ==
--- NOTE | 2025-02-08 10:31 | MHC.PC.OV ---
Vital Signs 02/08/25 10:35 02/08/25 11:11 Height 5 ft 8 in Weight 278 lb 4 oz BMI 42.3 BP 152/82 H 118/76 Blood Pressure Location Rt brachial Rt brachial Position Sitting Sitting Respiration 13 Pulse 95 Pulse Source Pulse Oximeter Temp 97.2 F Temp Source Oral Pulse Oximetry (%) 97 Oxygen Delivery Method Room Air Intake Visit Reasons: 4-6 weeks FU HTN/echo/sleep study 30 min Intake Note: 6 weeks follow up on htn, and to review echo. Patient Sleep study is on March 14. Sales Operations Manager Required: No Allergies No Known Allergies Allergy (Verified 02/08/25 10:32) Medication List - Last Reconciled 02/08/25 by VIKTORIYA Gutierrez- lisinopril 40 mg PO DAILY naproxen 500 mg PO BID PRN 14 days tirzepatide (weight loss) (Zepbound) 5 mg subcut QWEEK Tobacco use date assessed: 02/08/25 Dental Screening Dental Screen Date: 02/08/25 Did you have a dental visit in the last 12 months?: Yes Did you have a dental problem in the last 6 months where you did not have access to dental care?: No Was dental information given to patient?: Patient has dentist HPI HPI Comments History of Present Illness Details 39-year-old male with morbid obesity, hypertension, hx of provoked DVT RUE (high school), LVH, elevated LFT, HLD s/p umb hernia repair, Family hx: Dad with [place] Social: , works in construction Health Maintenance: PSA ordered today Tdap admin today Flu declined Specialists: None History of Present Illness - The patient is a 40-year-old male presenting with a follow-up for hypertension and knee pain. - Hypertension: Managed with lisinopril 40 mg daily. Echocardiogram shows mild aortic dilation and LVH.Home SBP 118-120 - Knee Pain, L: History of twisting injury last fall, with intermittent symptoms. Recent X-ray showed trace arthritis & some swelling. Naproxen provided temporary relief; taking sparingly. Advised today of potential blood pressure impact. - Sleep study scheduled first week of March - ENT referral to CT pending - no longer using Sudafed; also feels like he does not need it anymore - Derm appt also in process Review of Systems - Cardiovascular: Denies chest pain. Reports controlled blood pressure at home. - Respiratory: Denies cough or shortness of breath. - Musculoskeletal: Reports knee pain with swelling; denies new trauma. - General: Denies fatigue. Reports increased energy and decreased grogginess. Results - Echocardiogram: Mildly dilated ascending aorta, ejection fraction 55-60%, mild LVH with impaired relaxation filling pattern. - X-ray of knee: Trace arthritis, slight swelling. - Echocardiogram: Mildly dilated ascending aorta, ejection fraction 55-60%, mild LVH with impaired relaxation filling pattern. - X-ray of knee: Trace arthritis, slight swelling. Discussion Notes I discussed with the patient the importance of maintaining blood pressure control to prevent complications such as heart failure or aortic aneurysm. We reviewed the echocardiogram findings, noting the mild dilation of the aorta and LVH. I explained that the goal is to manage hypertension to reduce pressure on the aorta. We also discussed the potential impact of sleep apnea on blood pressure and heart health, with a sleep study scheduled for early March. For the knee pain, I advised an orthopedic referral for further evaluation, including the possibility of an MRI if symptoms persist. I emphasized caution with naproxen use due to potential blood pressure increase. We arranged for follow-up via telehealth to review the sleep study results. Assessment and Plan 1. Essential Hypertension - Continue lisinopril 40 mg daily. - Monitor blood pressure at home. 2. Mildly Dilated Ascending Aorta - Control blood pressure to prevent aneurysm. Repeat echo 1 year 3. Left Ventricular Hypertrophy - Maintain antihypertensive therapy. 4. Knee Pain, L - Refer to orthopedics for further evaluation. - Use knee brace and limit naproxen. Patient Instructions - Continue taking lisinopril as prescribed. - Check blood pressure regularly at home. - Wear knee brace as needed. - Avoid or limit naproxen; be aware it can raise blood pressure. - Follow-up with orthopedics for knee evaluation. - Schedule a telehealth visit to discuss sleep study results. Exam Awake alert NAD PERRLA EOMI RRR LS clear but dim throughout No edema BLE See below for rash Neuro - no deficits Consent Patient was informed and verbally consented to the use of an ambient scribe for clinic note documentation during this visit. Total time spent caring for the patient today was 30 minutes. This includes time spent before the visit reviewing the chart, time spent during the visit, and time spent after the visit on documentation, reviewing laboratory results, diagnostic imaging, medications, performing a medically necessary evaluation, counseling on diagnoses, care coordination, ordering appropriate tests, ordering appropriate medications, review of tests performed by other providers, reporting test results with the patient, communication with other healthcare providers. FORMERLY [facility] Medical History H/O blood clots Anxiety High blood pressure Surgical History History of hernia repair Family History Father Alcohol abuse High blood pressure Cardiovascular disease Mother Anal cancer Social History Housing: House Patient Tobacco Use Status: Never used Tobacco e-Cigarette/Vaping Use: Never Used Second Hand Smoke Exposure: No service: No Current occupational status: employed Current occupation: labor work Current occupational exposures/hazards: No Cognitive needs: No Hearing needs: No Vision needs: No Questionnaire Thrive Questionnaire Date Thrive assessed: 12/13/24 I am a: Patient What is your living situation today?: I have a steady place to live Within the past 12 months, did the food you bought not last and you didn't have the money to get more?: Never true Within the past 12 months, did you worry whether your food would run out before you got money to buy more?: Never true Do you have trouble paying for medicines?: No Do you have trouble getting transportation to medical appointments?: No Do you have trouble paying your heating and electricity bill?: No Do you have trouble taking care of your child, family member or friend?: No Do you have trouble with day-to-day activities such as bathing, preparing meals, shopping, managing finances, etc.?: No Are you currently unemployed and looking for a job?: No Are you interested in more education?: No Please select the resources that you would like help with: None Currently or been in a relationship where the following occur: No concerns reported THRIVE Score: 0 FREDI-7 AMB Questionnaire FREDI-7 Date FREDI - 7 assessed: 12/13/24 Source: Developed by Drs. Lawrence Davila, Pao Power, Nilton Grimaldo and colleagues, with an educational elva from [employer]. Physical exam (Primary Care) Vital Signs: Last Vital Signs Temp 97.2 F 02/08/25 10:35 Pulse 95 02/08/25 10:35 Resp 13 02/08/25 10:35 BP 118/76 02/08/25 11:11 Pulse Ox 97 02/08/25 10:35 Oxygen Delivery Method Room Air 02/08/25 10:35 BMI result Body Mass Index 42.3 Tobacco/Smoking Status: Tobacco use Status Tobacco use date assessed 02/08/25 02/08/25 10:37 Patient Tobacco Use Status Never used Tobacco 02/08/25 10:31 e-Cigarette/Vaping Use Never Used 02/08/25 10:31 Thrive Assessment: Date of Thrive Assessment Date Thrive assessed 12/13/24 02/08/25 10:31 Currently or been in a relationship where the following occur: No concerns reported Results Reviewed Results Reviewed: [address] [address] Cardiology Report Signed Patient: Brennen Tate MR#: [id number] : 1985 Acct:[id number] Age/Sex: 40 / M ADM Date: 01/23/25 Loc: [facility] Attending Dr: Malena CANALES Ordering Physician: Malena Hairston Date of Service: 01/23/25 Procedure(s): CA echo transthorac w con Accession Number(s): cc: Malena Hairston~ Transthoracic Echocardiogram Patient (Last, First, Middle): Brennen Tate M Gender: Male Date of : 1985 Age: 40 Procedure Date: 01/23/2025 Procedure Type: Transthoracic Echocardiogram Location: OP Height: 172. cm Weight: 127.01 kg BSA: 2.35 m2 Heart Rate: 91 bpm BP: 140 / 90 mmHg Ceramics Technician: BROOK Kearney MD: Malena CANALES Program Advisor: Trey Negrete MD Symptoms: I51.7 - Cardiomegaly Study Quality: Technically Difficult ECG Rhythm: Sinus Conclusions: - 1. Technically limited study despite use of contrast agents 2. Normal LV ejection fraction 55-60% with mild LVH with impaired relaxation filling pattern 3. Cardiac valvular Dopplers without any significant abnormalities 4. Mildly dilated ascending aorta Findings Procedure Information Contrast agent, definity, is being given per protocol without apparent complications. Left Ventricle Normal left ventricular size and systolic function. There is mildly increased left ventricular wall thickness. The visually estimated ejection fraction is between 55-60%. Spectral Doppler is indicative of an impaired relaxation filling pattern. E/E prime ratio is between 8 and 15 consistent with indeterminate filling pressures. Right Ventricle Normal right ventricular cavity size and systolic function. Atria The left atrium is likely dilated. There is no evidence of interatrial shunt. The right atrium is normal in size. Aortic Valve The aortic valve was not well visualized. There is no aortic valve stenosis. There is no aortic valve regurgitation. Mitral Valve The mitral valve was not well visualized. There is no mitral valve regurgitation. There is no mitral valve stenosis. Pulmonic Valve The pulmonic valve was not well visualized. Tricuspid Valve The tricuspid valve was not well visualized. Tricuspid regurgitation envelope is inadequate for calculation of right ventricular systolic pressure. Great Vessels The aorta was not well visualized. The pulmonary artery was not well visualized. There is mild dilatation of the ascending aorta measuring 4.00 cm. Venous The inferior vena cava was not well visualized. Pericardium/Pleural The pericardium was not well visualized. Prior Study Comparison No prior study available for comparison. Measurements 2D Linear Measurements IVSd: 1.31 0.6-0.9/0.6-1.0 cm LVIDd: 4.09 3.9-5.3/4.2-5.9 cm LVIDd Index: 1.74 2.4-3.2/2.2-3.1 cm/m2 LVIDs: 2.27 2.0-3.6 cm LVPWd: 1.46 0.7-1.1 cm Ao Root: 3.90 2.1-3.5 cm LA Diam: 3.90 2.7-3.8/3.0-4.0 cm LAIDs Index: 1.66 1.5-2.3 cm/m2 LV Mass: 264.59 67-162/88-224 g LV Mass Index: 112.59 43-95/49-115 g/m2 LVOT Diam: 2.60 3.0+(-)1.3 cm 2D Systolic Function EF 4C: 53.90 >55% EF 2C: 59.90 >55% EF BiP: 55.40 >55% Mitral Valve MV Pk E: 0.57 MV PK A: 0.78 MV Decel Time: 251.00 E/A: 0.70 E'Lateral: 7.07 E'Medial: 6.20 E/E' Med: 9.20 E/E' Lat: 8.10 PHT: 73.00 MVA PHT: 3.01 Decel Coleman: 2.27 Aortic Valve AoV Pk Brendon: 1.24 AoV Mn Brendon: 0.91 AoV VTI: 0.19 AoV Pk Grad: 6.00 Aov Mn Grad: 4.00 NICHOLAS Cont.VTI: 5.39 LVOT LVOT Pk Brendon: 1.06 LVOT Mn Brendon: 0.74 LVOT VTI: 0.19 LVOT Pk Grad: 4.00 LVOT Mn Grad: 3.00 LVOT Diam: 2.60 LVOT Area: 5.31 Diastolic Function MV Pk E: 0.57 MV Pk A: 0.78 E/A: 0.70 E'Medial: 6.20 E/E' Med: 9.20 E' Laterial: 7.07 E/E' Lat: 8.10 Tricuspid Valve RA Press: 3.00 Great Vessels Aorta Ao Root-2D: 3.90 2.0-3.7 cm Ao Asc: 4.00 2.1-3.4 cm Ao Arch: 3.70 Pulmonary Valve PV Pk Brendon: 0.81 Peak PV Grad: 3.00 Updated in Other Vendor System with Status of Final Trey Negrete MD electronically signed on 01/23/2025 5:14:46 PM with status of Final Coding Level of Care Code Est Pt Level 4 (84215) Complex EM visit Add On G2211 Diagnoses Post-traumatic osteoarthritis of left knee M17.32 Osteoarthritis type: post-traumatic Laterality: left LVH (left ventricular hypertrophy) I51.7 Mild ascending aorta dilatation I77.810 Primary hypertension I10 Hypertension type: primary hypertension Atypical rash R21 Chronic nasal congestion R09.81 Assessment & Plan Assessment & Plan (1) Osteoarthritis, knee: Code(s): M17.9 - Osteoarthritis of knee, unspecified Category: Medical Qualifiers: Osteoarthritis type: post-traumatic Laterality: left Qualified Code(s): M17.32 - Unilateral post-traumatic osteoarthritis, left knee (2) LVH (left ventricular hypertrophy): Code(s): I51.7 - Cardiomegaly Category: Medical (3) Mild ascending aorta dilatation: Onset Date: 01/2025 Comment: repeat echo 01/2026, ordered today Code(s): I77.810 - Thoracic aortic ectasia Category: Medical (4) High blood pressure: Code(s): I10 - Essential (primary) hypertension Category: Medical Qualifiers: Hypertension type: primary hypertension Qualified Code(s): I10 - Essential (primary) hypertension (5) Atypical rash: Comment: bilat knee refer to derm Code(s): R21 - Rash and other nonspecific skin eruption Category: Medical (6) Chronic nasal congestion: Code(s): R09.81 - Nasal congestion Category: Medical Plan . Orders: Orders CA echo transthoracic complete 1 Year I51.7 - Cardiomegaly, I77.810 - Thoracic aortic ectasia Referrals Orthopedics Referral M17.9 - Osteoarthritis of knee, unspecified Medications: Refilled lisinopril 40 mg PO DAILY 90 tabs 2RF
[2025-02-08 10:35] VITALS: BP 152/82; PULSE 95; RESP 13; TEMP 36.2; O2SAT 97; BMI 42.3
[2025-02-08 11:11] VITALS: BP 118/76
== END 2025-02-08 12:10 | disposition home or self-care (01) ==
LOC: HO.HMCFM 10:21
PROVIDERS: PCP Nurse Practitioner Family; Visit Provider Nurse Practitioner Family
DX: M17.32 Unilateral post-traumatic osteoarthritis, left knee (principal); I51.7 Cardiomegaly; I77.810 Thoracic aortic ectasia; I10 Essential (primary) hypertension; R21 Rash and other nonspecific skin eruption; R09.81 Nasal congestion

== ENCOUNTER → 2025-02-08 10:20 | Outpatient (BNVA) | payer OTHER, SELFPAY | PROVIDERS: PCP Nurse Practitioner Family; Visit Provider Nurse Practitioner Family | DX: Z13.89 Encounter for screening for other disorder (principal) ==

== ENCOUNTER 2025-05-31 10:20 | Outpatient (AMB) | payer OTHER, SELFPAY ==
--- NOTE | 2025-05-31 10:24 | A.OFFPC_ITS ---
Vital Signs 05/31/25 10:27 Height 5 ft 8 in Weight 253 lb 6 oz BMI 38.5 BP 138/78 Blood Pressure Location Rt brachial Position Sitting Respiration 12 Pulse 91 Pulse Source Pulse Oximeter Temp 97.2 F Temp Source Oral Pulse Oximetry (%) 99 Oxygen Delivery Method Room Air Intake Visit Reasons: migraines Intake Note: Follow up on migraines Airplane Flight Attendant Required: No Allergies No Known Allergies Allergy (Verified 05/31/25 10:42) Medication List - Last Reconciled 05/31/25 by VIKTORIYA Gutierrez- lisinopril 40 mg PO DAILY naproxen 500 mg PO BID PRN 14 days tirzepatide (weight loss) (Zepbound) 5 mg subcut QWEEK Tobacco use date assessed: 05/31/25 Dental Screening Dental Screen Date: 05/31/25 Did you have a dental visit in the last 12 months?: Yes Did you have a dental problem in the last 6 months where you did not have access to dental care?: No Was dental information given to patient?: Patient has dentist HPI HPI Comments History of Present Illness Details 40-year-old male with morbid obesity, hy pertension, hx of provoked DVT RUE (high school), LVH, elevated LFT, HLD s/p umb hernia repair, Family hx: Dad with [place] Social: going through divorce, works in construction Health Maintenance: PSA ordered today Tdap admin today Flu declined Specialists: None History of Present Illness The patient is a 40 year old male presenting with anxiety and headaches. Anxiety Disorder: - Significant anxiety during divorce. - Support from family noted. - would like counseling. Denies si/hi Tension Headaches: - 10-hour duration, back of head/neck - Exacerbated by neck movements. - Some relief with Excedrin Migraine 4 t abs. Affects sleep Essential Hypertension: - Managed with Lisinopril. was adriana ging refills; so he has not picked up his current RX. Edu on about this provided today. - Using existing medication supply. Due for flu shot. Review of Systems - Neurological: Reports headaches. Denie s vomiting, reports occasional nausea. Reports stiff neck. - Psychological: Reports experiencing si gnificant anxiety. Denies any thoughts of self-harm or harm to others. - Cardiovascular: Mentions issues with r efill of hypertension medication. - Pulmonary: Denies recent congestion. - Sleep: Reports difficulty falling asle ep during headaches. Physical Exam General: Well developed, well nourished, in no acute distress. Appears stated age. Head: Normocephalic, atraumatic Eyes: Pupils are equal, round and reactive to light and accommodation. Conjunctivae are clear. Vision grossly normal. EOMI Lungs: Clear to auscultation bilaterally. No rales, rhonchi or wheeze noted. Good air flow in all dar[place]. Heart: Regular rate and rhythm. No murmurs, click, rubs or gallops are noted. Pulses: Peripheral pulses are equal and palpable bilaterally. Extremities: No clubbing, cyanosis nor edema is noted. Neuro: Exam benign Psych: Mood and affect appropriate. Discussion Notes I discussed the nature and management of the patient's anxiety, emphasizing available support options and initial pharmacological intervention with hydroxyzine, highlighting its sedative properties and usage guidelines. Magnesium was also recommended for overall health benefits, particularly addressing muscle relaxation, sleep, and anxiety mitigation. In relation to hypertension, the patient was reminded to address prescription refill delays to maintain blood pressure control. I explained potential interactions and recommended conservative and supportive management of his headaches, focusing on stress reduction as a primary approach while noting the patient's current strategies of exercise and support community. We agreed on a follow-up plan and change of primary contact information. Patient was given time to ask questions. All questions were answered to their satisfaction. Assessment and Plan 1. Anxiety Disorder - Hydroxyzine 12.5- 50mg BID as needed. - Magnesium Oxide 400mg QHS recommended. - refer to NN for counseling 2. Tension-Type Headaches - Prescribe Baclofen as needed. - Cont to use OTC Excedrin as needed - Start Mag . Edu on side effects. 4. Essential Hypertension - Address refill issues with pharmacy. - Continue Lisinopril. 5. Flu shot admin today. Patient Instructions - Take hydroxyzine as needed for anxiety , and try it first at home for side effects. - Use Excedrin Migraine for headaches. - Take Baclofen as needed for tension-ty pe headaches. - Take magnesium nightly for sleep and m uscle relaxation. - Talk to the pharmacy about your Lisino pril refills. - Expect a call from our therapy team so on. - Contact family for emotional support a s needed. - RTO in 8-10 weeks to fu on above, soon er as needed. Consent Patient was informed and verbally consented to the use of an ambient scribe for clinic note documentation during this visit. Total time spent caring for the patient today was 30 minutes. This includes time spent before the visit reviewing the chart, time spent during the visit, and angela e spent after the visit on documentation, reviewing laboratory results, diagnostic imaging, medications, performing a medically necessary evaluation, counseling on diagnoses, care coordination, ordering appropriate tests, ordering appropriate medications, review of tests performed by other providers, reporting test results with the patient, communication with other healthcare providers. FORMERLY [facility] Medical History H/O blood clots Anxiety High blood pressure Surgical History History of hernia repair Family History Father Alcohol abuse High blood pressure Cardiovascular disease Mother Anal cancer Social History Housing: House Patient Tobacco Use Status: Never used Tobacco e-Cigarette/Vaping Use: Never Used Second Hand Smoke Exposure: No service: No Current occupational status: employed Current occupation: labor work Current occupational exposures/hazards: No Cognitive needs: No Hearing needs: No Vision needs: No Questionnaire Thrive Questionnaire Date Thrive assessed: 12/13/24 I am a: Patient What is your living situation today?: I have a steady place to live Within the past 12 months, did the food you bought not last and you didn't have the money to get more?: Never true Within the past 12 months, did you worry whether your food would run out before you got money to buy more?: Never true Do you have trouble paying for medicines?: No Do you have trouble getting transportation to medical appointments?: No Do you have trouble paying your heating and electricity bill?: No Do you have trouble taking care of your child, family member or friend?: No Do you have trouble with day-to-day activities such as bathing, preparing meals, shopping, managing finances, etc.?: No Are you currently unemployed and looking for a job?: No Are you interested in more education?: No Please select the resources that you would like help with: None Currently or been in a relationship where the following occur: No concerns reported THRIVE Score: 0 FREDI-7 AMB Questionnaire FREDI-7 Date FREDI - 7 assessed: 12/13/24 Source: Developed by Drs. Lawrence Davila, Pao Power, Nilton Grimaldo and colleagues, with an educational elva from [employer]. Physical exam (Primary Care) Vital Signs: Last Vital Signs Temp 97.2 F 05/31/25 10:27 Pulse 91 05/31/25 10:27 Resp 12 05/31/25 10:27 BP 138/78 05/31/25 10:27 Pulse Ox 99 05/31/25 10:27 Oxygen Delivery Method Room Air 05/31/25 10:27 BMI result Body Mass Index 38.5 Tobacco/Smoking Status: Tobacco use Status Tobacco use date assessed 05/31/25 05/31/25 10:28 Patient Tobacco Use Status Never used Tobacco 05/31/25 10:28 e-Cigarette/Vaping Use Never Used 05/31/25 10:28 Thrive Assessment: Date of Thrive Assessment Date Thrive assessed 12/13/24 05/31/25 10:28 Currently or been in a relationship where the following occur: No concerns reported Office Procedures AMB Patient Education/Training AMB Patient Education/Training Documentation: [id number] Separately and distinctly, 8 minutes face to face counseling on risk factor reduction related to diet, exercise, weight management, sexual health, immunization, injury prevention. Medical necessity includes review of VS, BMI, current medications, age/race/gender to identify risks. Patient was provided with a wellness handout at the time of discharge. Flu Questionnaire Does the patient have a severe egg allergy?: No Does the patient have severe life threatening allergies?: No Does the patient have a fever or illness today?: No Has the patient ever had Guillain-Carlisle Syndrome?: No Has the patient ever had any past reaction to a flu shot?: No Immunizations Fluarix [id number] (PF) 45 mcg (15 mcg x 3)/0.5 mL IM syringe Performing Provider: ALLY Gutierrez Performing Location: [facility] Administered by: Seferino Villegas MA on 05/31/25 11:15 Dose Route Admin Location Dispensed Lot Number Expiration Date [facility] [place] 0.5 mL IM Right Deltoid 0.5 mL [id number] 03/12/26 [id number] [facility] [facility] VIS Given Date VIS Provided VIS Publication Date 05/31/25 Single Vaccine 24 Eligibility Eligibility Date Funding Source Not [facility] Eligible 05/31/25 Private Coding Level of Care Code Est Pt Level 4 (82304) Complex EM visit Add On G2211 Diagnoses Primary hypertension I10 Hypertension type: primary hypertension Tension headache G44.209 Situational anxiety F41.8 Influenza vaccination administered at current visit Z23 Immunization counseling Z71.85 Assessment & Plan Assessment & Plan (1) High blood pressure: Code(s): I10 - Essential (primary) hypertension Category: Medical Qualifiers: Hypertension type: primary hypertension Qualified Code(s): I10 - Essential (primary) hypertension (2) Tension headache: Code(s): G44.209 - Tension-type headache, unspecified, not intractable Category: Medical (3) Situational anxiety: Code(s): F41.8 - Other specified anxiety disorders Category: Medical (4) Influenza vaccination administered at current visit: Code(s): Z23 - Encounter for immunization Category: Medical (5) Immunization counseling: Code(s): Z71.85 - Encounter for immunization safety counseling Category: Medical Plan . Orders: Orders Influenza [id number] Immunization Today Z23 - Encounter for immunization Referrals Nurse Navigator Referral F41.1 - Generalized anxiety disorder Medications: New hydroxyzine HCl 25 mg PO BID PRN 60 tabs 1RF anxiety baclofen 10 mg PO DAILY PRN 30 tabs 0RF muscle tension magnesium oxide 400 mg PO BEDTIME 90 caps 2RF
[2025-05-31 10:27] VITALS: BP 138/78; PULSE 91; RESP 12; TEMP 36.2; O2SAT 99; BMI 38.5
== END 2025-05-31 11:17 | disposition home or self-care (01) ==
LOC: HO.HMCFM 10:21
PROVIDERS: PCP Nurse Practitioner Family; Visit Provider Nurse Practitioner Family
DX: I10 Essential (primary) hypertension (principal); G44.209 Tension-type headache, unspecified, not intractable; F41.8 Other specified anxiety disorders; Z23 Encounter for immunization; Z71.85 Encounter for immunization safety counseling

== ENCOUNTER → 2025-05-31 10:20 | Outpatient (BNVA) | payer OTHER, SELFPAY | PROVIDERS: PCP Nurse Practitioner Family; Visit Provider Nurse Practitioner Family | DX: I10 Essential (primary) hypertension (principal); G44.209 Tension-type headache, unspecified, not intractable; F41.9 Anxiety disorder, unspecified; F41.8 Other specified anxiety disorders; Z23 Encounter for immunization; Z71.85 Encounter for immunization safety counseling | CPT/HCPCS: 90471; 90656 ==